=== PATIENT | male | born 1980 | race Caucasian/White ===

== ENCOUNTER 2017-01-17 13:05 | Emergency (ER) | payer OTHER ==
[~2017-01-17] VITALS: Ht 172.7 cm; Wt 82.2 kg
[2017-01-17 13:07] VITALS: BP 131/84; PULSE 60; TEMP 36.9; O2SAT 97; Ht 172.7 cm; Wt 82.2 kg
[2017-01-17] MEDS ORDERED: XYLOCAINE 1%/SOD BICARB 20 ML VIAL INFIL ONE (13:15)
--- NOTE | 2017-01-17 13:47 | EMERGENCY ROOM VISIT NOTE ---
History First contact with patient: 13:12 Chief Complaint: LACERATION/CUT (SUT/DERMABOND) Stated Complaint: LACERATION-FINGER LEFT HAND-WORK RELATED INJURY History of Present Illness The patient is a 36 year old male who presents to the Emergency Room with complaints of a laceration to his left index finger. The patient reports that at approximately 12:50 PM, he cut his left index finger while slicing a washoe. He denies any paresthesias or numbness of the finger or fingertip. He denies any significant bleeding from the wound, and rates his discomfort a 4 out of 10. The patient is [id number], and tetanus immunization is up-to-date. Review of Systems 10 system review was performed and was negative except for pertinent positives and negatives as indicated in history of present illness Past Medical/Surgical History Medical Problems: (1) Epidermal Cyst (2) Unspecified Abdominal Hernia Without Obstruction Or Gangrene Surgical Problems: (1) History of dental surgery (2) History of wisdom tooth extraction Social History Smoking Status: Never Smoker Smokeless Tobacco Use: Yes Alcohol Use: occasionally Marital Status: single Housing Status: lives alone Occupation Status: employed Current/Historical Medications No Active Prescriptions or Reported Meds Physical Exam Vital Signs Date Time Temp Pulse Resp B/P (MAP) Pulse Ox O2 Delivery O2 Flow Rate FiO2 01/17/17 13:07 36.9 60 20 131/84 97 Room Air Physical Exam CONSTITUTIONAL: Healthy and well nourished. Alert and oriented X 3 with positive affect. Patient does not appear in any acute distress. HEENT: Normocephalic, atraumatic. Pupils equal, round and reactive. NECK: Full active range of motion without discomfort. MUSCULOSKELETAL: Examination of the left index finger shows a 1 cm laceration on the volar aspect of the middle phalanx. The wound is well approximated and without active bleeding. The patient refused tendon exam on initial exam, and agreed to do so after anesthesia. Capillary refill is less than 2 seconds. INTEGUMENTARY: No rash or other significant dermatologic conditions noted. NEUROLOGIC: Left index fingertip is sensory intact. Medical Decision & Procedures Procedure Laceration repair was performed by our physician assistant department manager student under my direct supervision. Using buffered 1% lidocaine without epinephrine, good digital block anesthesia was administered. The tissue was peripherally cleansed with iodine, then the wound was copiously pressure irrigated with normal saline. Exploration of the wound does not show any exposure of the flexor tendons. In fact, the laceration does not extend through the dermal layer, being a partial thickness dermal laceration. He did have a flap of epidermal tissue that were sharply debrided using a #15 scalpel. The base of the wound was then approximated using 5-0 nylon simple interrupted sutures. Bacitracin dressing was applied. ED Course Patient history and physical exam were performed. Nurse's notes were reviewed. Vital signs were reviewed and normal. Laceration repair was performed under digital block anesthesia. The patient was provided additional verbal and written wound care instructions. Ice and elevation for swelling. Ibuprofen or Tylenol as needed for pain. Suture removal in 12-14 days, or seek reevaluation sooner for any signs of wound infection. The patient was happy with plan of care, voiced understanding of all discharge instructions, and denied any pain at the conclusion of my exam. Medical Decision Impression Primary Impression: Laceration of index finger of left hand without complication Additional Impression: Work related injury Departure Information Dispostion Home / Self-Care Prescriptions No Active Prescriptions or Reported Meds Forms HOME CARE DOCUMENTATION FORM, IMPORTANT VISIT INFORMATION Patient Instructions My [facility] Additional Instructions Keep wound clean and dry. Do not allow any crusting or dried blood to accumulate on sutures. If this occurs, use a 1:1 solution of hydrogen peroxide/ water on a Q-tip to clean the wound. Use an antibiotic ointment for 3-4 days, then let wound dry. Suture removal in 12-14 days. Return sooner for any signs of infection (increasing redness, swelling, drainage). Ice and elevate for swelling and pain. Ibuprofen 600 mg and Tylenol 1000 mg every 6 hrs for pain. Problem Qualifiers Primary Impression: Laceration of index finger of left hand without complication Encounter type: initial encounter Qualified Codes: S61.211A - Laceration without foreign body of left index finger without damage to nail, initial encounter
== END 2017-01-17 14:23 | disposition home or self-care (01) ==
LOC: C.EDB 13:06 → C.EDD 14:23
DX: S61.211A Laceration without foreign body of left index finger without damage to nail, initial encounter (principal); W26.0XXA Contact with knife, initial encounter; Y93.G1 Activity, food preparation and clean up; Y99.0 Civilian activity done for income or pay; F17.220 Nicotine dependence, chewing tobacco, uncomplicated